=== PATIENT | male | born 1960 | race Hispanic/Latino ===

== ENCOUNTER 2025-02-02 18:36 | Emergency (ER) | payer SELFPAY ==
[2025-02-02] VITALS (36 sets, daily range): BP systolic 84–129; BP diastolic 51–65; PULSE 75–91; RESP 11–22; TEMP 36.8; O2SAT 91–100; BMI 27.5
--- NOTE | 2025-02-02 | DI.CT.S_ITS ---
PROCEDURE: CT ANGIO CHEST INDICATIONS: Dissection TECHNIQUE: After the administration of intravenous contrast, 2 mm thick sections acquired from the pulmonary apices to the posterior costophrenic angles. 3-dimensional maximum intensity projection (MIP) coronal and sagittal reformats were then acquired through the thorax. For radiation dose reduction, the following was used: automated exposure control, adjustment of mA and/or kV according to patient size. COMPARISON: [facility], CT, CT ANGIO CHEST PE PROTOCOL, 02/02/2025, 18:53., same-day CT chest PE E 02/02/2025, CT angio abdomen pelvis 02/02/2025 FINDINGS: Image quality: Diagnostic. Aorta: Ascending thoracic aortic aneurysm measuring approximately 4.7 cm. There is redemonstration of [place] type a ascending aortic dissection originating at its origin. The dissection extends into the right common carotid artery. Please see separately dictated CT angio abdomen pelvis for description of extension of dissection into the abdominal aorta and main arterial tributes. Pulmonary arteries: Pulmonary arteries are normal in size. Lower Neck: No enlarged lymph nodes. Thyroid: No thyroid nodules which require sonographic follow up, per consensus guidelines. Axillae: No enlarged lymph nodes. Chest Wall: Unremarkable. Bones: Unremarkable. Lungs and Pleura: No pneumothorax or pleural effusions. No consolidation or suspicious nodules. Heart: Heart size is normal. Large pericardial effusion. Thoracic Vessels: No aortic aneurysm. Mediastinum and Sherron: No enlarged lymph nodes. Esophagus: No wall thickening. No hiatal hernia. Upper Abdomen: Visualized upper abdomen solid organs and bowel loops appear normal. IMPRESSION: Ascending thoracic aortic aneurysm measuring up to 4.7 cm with known [place] type a aortic dissection. Dissection flap extends into the right common internal carotid artery. Please see separately dictated same day CT chest angio abdomen pelvis for description of abdominal aortic dissection. Approved by: Caitlin Burgess M.D.,Ph.D. on 02/02/2025 at 22:24
--- NOTE | 2025-02-02 18:40 | EKG_ITS ---
[place] [id number] [place] [id number] Test Date: 2025-02-02 Pat Name: Ruddy Umanzor Department: Room: Gender: Male Rehanger: : 1960 Requested By: Order Number: [id number] Reading MD: Taco Churchill MD Measurements Intervals [place] Rate: 87 P: 19 [place]: 140 QRS: 158 QRSD: 122 T: 32 QT: 422 QTc: 507 Interpretive Statements Normal sinus rhythm Right bundle branch block Left posterior fascicular block Bifascicular block Cannot rule out Inferior infarct , age undetermined NO PRIOR TRACING Electronically Signed On 02-03-2025 8:04:15 PST by Taco Churchill MD
--- NOTE | 2025-02-02 18:44 | DI.CT.S_ITS ---
PROCEDURE: CT ANGIO ABDOMEN PELVIS INDICATIONS: epigastric pain radiating to back TECHNIQUE: After the administration of intravenous contrast, 2.5 mm thick sections acquired from the diaphragm to the symphysis. 10 mm maximum-intensity projection (MIP) reformats were then acquired. For radiation dose reduction, the following was used: automated exposure control. COMPARISON: [facility], CT, CT ANGIO CHEST PE PROTOCOL, 02/02/2025, 18:53. FINDINGS: Image Quality: Diagnostic. Thoracic aorta: Ascending aortic dissection commencing at its origin. Inferior aspect only is visualized. Ascending aortic aneurysm seen on CT PE. Descending thoracic aortic dissection. Ben type A. The smaller lumen demonstrates decreased enhancement. Abdominal aorta: Abdominal aortic dissection. Extends into the left external iliac artery in the left pelvis, (4/121). No aneurysm. Mesenteric arteries: -Celiac artery originates off of the smaller less opacified lumen. The celiac artery branches are patent. -Dissection flap extends into the SMA. Near occlusion of the proximal SMA, (4/65). More distal portions of the SMA are opacified. -JORGE is patent. JORGE originates off of the larger more opacified lumen. Renal arteries: Right and left renal arteries originate off the smaller less opacified lumen, (4/60). Kidneys enhance symmetrically. Iliac arteries: No occlusion is seen. The right external iliac artery enhances much brighter than the left, (4/133). Dissection extends into the left external iliac artery. OTHER: Lower Chest: Dependent atelectasis. No pleural effusion. Pericardial effusion with increased density. 42 Hounsfield units. No enhancement of the pericardial effusion is seen. Fluid in the esophagus. Liver: No solid mass. Gallbladder: Not distended. The trace pericholecystic fluid. Biliary ducts: No biliary dilation. Pancreas: No ductal dilation. Spleen: Size is within normal limits. Adrenal Glands: No adrenal nodules. Kidneys and Ureters: No hydronephrosis. No solid mass. No complex renal cystic lesion which requires follow up. Low-density left renal cysts. Stomach and Bowel: Normal colonic caliber, without significant wall thickening. Normal appendix. Peritoneum: No ascites. No pneumoperitoneum. Ventral Wall: Small fat containing umbilical hernia. Abdominal Nodes: No retroperitoneal or mesenteric adenopathy by size criteria. Vessels: Aorta and inferior vena cava are normal in size. PELVIS: Pelvic Organs: Prostatomegaly. Bladder: No stone. Pelvic Nodes: No enlarged lymph nodes. Miscellaneous: No inguinal hernias are seen. Bones: No aggressive osseous abnormality. IMPRESSION: 1. Aortic dissection. [place] type A. Extending from the ascending thoracic aorta to the left external iliac artery. Dissection in the chest is only partially visualized. 2. Trace pericholecystic fluid. Nonspecific. 3. Fluid in the distal esophagus. 4. Moderate pericardial effusion. Comment: Findings were discussed with Taco Alan at time of dictation. Dictated by: Richard Don M.D. on 02/02/2025 at 19:37 Approved by: Richard Don M.D. on 02/02/2025 at 19:55
--- NOTE | 2025-02-02 18:44 | ED.GENADULT ---
HPI - General Adult General Chief complaint: Chest Pain Stated complaint: Chest/Abd pain Time Seen by Provider: 02/02/25 18:36 History of Present Illness HPI narrative: 64-year-old gentleman was at the [employer] playing cards to develop lower chest epigastric pain radiating to the back and became diaphoretic given 4 baby aspirin by EMS prior to arrival here and still hurting at this time. He denies any active chest pain, cough, shortness of breath, nausea, vomiting, diarrhea, constipation, rectal bleeding. Other than what is stated 14 point review system is negative. Related Data Allergies Allergy/AdvReac Type Severity Reaction Status Date / Time No Known Drug Allergies Allergy Verified 02/02/25 18:43 Review of Systems Review of Systems ROS Unobtainable: All systems reviewed & are unremarkable except as noted in HPI and below Exam Narrative Exam Narrative: GENERAL: [64] year old patient appears stated age. Well-developed patient, in mild distress. HEAD: Atraumatic. Normocephalic. EYES: Pupils equal round and reactive. Extraocular motions intact. No scleral icterus. No injection or drainage. ENT: Nose without bleeding, purulent drainage. Throat without erythema, tonsillar hypertrophy or exudate. Airway patent. NECK: Trachea midline. Non tender CARDIOVASCULAR: Regular rate and rhythm without murmurs, gallops, or rubs. RESPIRATORY: Clear to auscultation. Breath sounds equal bilaterally. No wheezes, rales, or rhonchi. GASTROINTESTINAL: Abdomen soft, epigastric TTP EXTREMITIES: No edema or joint tenderness. BACK: Nontender without deformity or crepitance. No flank tenderness. NEURO: AOx3. SKIN: No rash or erythema of visible areas Initial Vital Signs Initial Vital Signs: Vital Signs Temperature 98.2 F 02/02/25 18:43 Pulse Rate 86 02/02/25 18:43 Respiratory Rate 16 02/02/25 18:43 Blood Pressure 90/65 02/02/25 18:43 Pulse Oximetry 96 02/02/25 18:43 Oxygen Delivery Method Room Air 02/02/25 18:43 Course Orders Ordered: ED Orders 02/02/25 18:43 EKG-12 Lead Stat 02/02/25 18:44 CT angio abdomen pelvis Stat CT angio chest PE protocol Stat Complete Blood Count AUTO DIFF Stat Comprehensive Metabolic Panel Stat Lactate (Lactic Acid) Stat Lipase Stat Magnesium Stat NT-proBNP (BNP-Adult 18+) Stat PTT Partial Thromboplastin Eliseo Stat Prothrombin Time INR Stat Troponin & CK Cardiac Panel Stat 02/02/25 19:00 EKG-12 Lead Stat POTASSIUM CHLORIDE IN WATER (Potassium Cl 10 Meq/100 Ml Natasha) 10 meq in 100 mls @ 100 mls/hr IV Q1H GOLDY Stop: 02/02/25 23:29 Last Admin: 02/02/25 19:34 Dose: 100 mls/hr Documented By: VLADIMIR Discontinued Medications Aspirin (Aspirin 81 Mg Chew Tab) 324 mg PO NOW ONE Stop: 02/02/25 18:43 Last Admin: 02/02/25 18:55 Dose: Not Given Documented By: VLADIMIR Lactated Ringer's (Lactated Ringers) 1,000 mls @ 1,000 mls/hr IV BOLUS ONE Stop: 02/02/25 19:51 Last Infusion: 02/02/25 19:47 Dose: Infused Documented By: Admin: 02/02/25 18:55 Dose: 1,000 mls/hr Documented By: VLADIMIR Morphine Sulfate (Morphine 4 Mg/Ml Inj) 4 mg IV NOW ONE Stop: 02/02/25 18:54 Last Admin: 02/02/25 18:56 Dose: 4 mg Documented By: VLADIMIR Morphine Sulfate (Morphine 4 Mg/Ml Inj) 4 mg IV NOW ONE Stop: 02/02/25 19:21 Last Admin: 02/02/25 19:23 Dose: 4 mg Documented By: VLADIMIR Ondansetron HCl (Ondansetron 4 Mg/2 Ml Inj) 4 mg IV NOW ONE Stop: 02/02/25 19:27 Last Admin: 02/02/25 19:32 Dose: 4 mg Documented By: VLADIMIR Vital Signs Vital signs: Vital Signs - 8 hr 02/02/25 18:43 02/02/25 19:24 02/02/25 19:25 Temperature 98.2 F Pulse Rate 86 80 Respiratory Rate 16 13 Blood Pressure 90/65 84/54 L Pulse Oximetry 96 98 Oxygen Delivery Method Room Air Nasal Cannula Oxygen Flow Rate 4 02/02/25 19:25 02/02/25 19:28 02/02/25 19:28 Temperature Pulse Rate 80 83 Respiratory Rate 11 L 12 Blood Pressure 112/60 Pulse Oximetry 99 100 Oxygen Delivery Method Nasal Cannula Nasal Cannula Oxygen Flow Rate 4 4 02/02/25 19:30 02/02/25 19:30 02/02/25 19:32 Temperature Pulse Rate 83 82 Respiratory Rate 20 Blood Pressure 100/59 L Pulse Oximetry 100 100 Oxygen Delivery Method Nasal Cannula Nasal Cannula Oxygen Flow Rate 4 4 02/02/25 19:32 02/02/25 19:34 02/02/25 19:35 Temperature Pulse Rate 82 81 Respiratory Rate 13 13 Blood Pressure 94/52 L Pulse Oximetry 98 96 Oxygen Delivery Method Nasal Cannula Nasal Cannula Oxygen Flow Rate 4 4 02/02/25 19:35 02/02/25 19:36 02/02/25 19:37 Temperature Pulse Rate 80 Respiratory Rate 15 Blood Pressure 99/56 L 105/61 Pulse Oximetry 99 Oxygen Delivery Method Nasal Cannula Oxygen Flow Rate 4 02/02/25 19:37 02/02/25 19:38 02/02/25 19:40 Temperature Pulse Rate 79 85 82 Respiratory Rate 15 21 17 Blood Pressure Pulse Oximetry 97 100 96 Oxygen Delivery Method Nasal Cannula Nasal Cannula Nasal Cannula Oxygen Flow Rate 4 4 4 02/02/25 19:40 02/02/25 19:43 02/02/25 19:43 Temperature Pulse Rate 80 Respiratory Rate 17 Blood Pressure 109/61 97/52 L Pulse Oximetry 92 Oxygen Delivery Method Oxygen Flow Rate 02/02/25 19:45 02/02/25 19:45 02/02/25 19:47 Temperature Pulse Rate 77 Respiratory Rate 12 Blood Pressure 96/56 L 95/53 L Pulse Oximetry 91 Oxygen Delivery Method Oxygen Flow Rate 02/02/25 19:47 02/02/25 19:50 02/02/25 19:50 Temperature Pulse Rate 79 75 Respiratory Rate 17 16 Blood Pressure 92/51 L Pulse Oximetry 62 L 98 Oxygen Delivery Method Oxygen Flow Rate Medical Decision Making Lab Data 02/02/25 18:44 02/02/25 18:44 Labs: Lab Results 02/02/25 Range/Units 18:44 WBC 10.4 (4.5-11.0) X10^3/uL RBC 5.46 (4.5-5.9) X10^6/uL Hgb 15.6 (13.5-17.5) g/dL Hct 46.8 (41-53) % MCV 85.8 (80-100) fL MCH 28.5 (26-34) PG MCHC 33.2 (30-36) % RDW 15.1 H (11.6-14.8) % Plt Count 191 (150-400) X10^3/uL Neut % (Auto) 45.9 L (50-75) % Lymph % (Auto) 38.3 (25-40) % Miller % (Auto) 9.1 (3-14) % Eos % (Auto) 5.9 H (2-4) % Baso % (Auto) 0.8 (0-2) % Neut # (Auto) 4800 (9349-0139) /uL Lymph # (Auto) 4000 (2663-5490) /uL Miller # (Auto) 900 (0-900) /uL Eos # (Auto) 600 H (0-450) /uL Baso # (Auto) 100 (0-100) /uL PT 11.9 (9.4-12.5) SECONDS INR 1.1 (0.9-1.3) APTT 30 (25.1-36.5) SECONDS Sodium 140 (137-145) mmol/L Potassium 2.6 L* (3.4-5.1) mmol/L Chloride 105 (98-107) mmol/L Carbon Dioxide 21 L (22-32) mmol/L BUN 18 (9-20) mg/dL Creatinine 1.28 H (0.66-1.25) mg/dL Estimated GFR > 60 (>60) mL/min BUN/Creatinine Ratio 14.1 (6-22) Glucose 141 H (70-99) mg/dL Lactate 6.2 H* (0.7-2.1) mmol/L Calcium 9.1 (8.4-10.2) mg/dL Magnesium 2.0 (1.6-2.3) mg/dL Total Bilirubin 0.7 (0.2-1.3) mg/dL AST 34 (17-59) IU/L ALT 29 (<50) IU/L Alkaline Phosphatase 57 (38-126) U/L Total Creatine Kinase 110 (55-170) U/L Troponin I < 0.012 (0.01-0.034) ng/mL NT-Pro-B Natriuret Pep 110 (<125) pg/mL Total Protein 8.1 (6.3-8.2) g/dL Albumin 4.5 (3.5-5.0) g/dL Globulin 3.6 (1.7-4.1) g/dL Albumin/Globulin Ratio 1.3 (1.0-2.8) Lipase 110 (23-300) U/L Imaging Data CT scan - abdomen/pelvis: Radiologist's Impression: [address] [address] [address] Scan Report Signed Patient: Ruddy Sanford MR#: [id number] : 1960 Acct:[id number] Age/Sex: 64 / M Date of Service: 02/02/25 Loc: ED Accession Number: [id number] Procedure: CT angio chest PE protocol Ordering Provider: Taco Alan D.O. PROCEDURE: CT ANGIO CHEST PE PROTOCOL INDICATIONS: chest pain radiating to back TECHNIQUE: After the administration of intravenous contrast, 2 mm thick sections acquired from the pulmonary apices to the posterior costophrenic angles. 3-dimensional maximum intensity projection (MIP) coronal and sagittal reformats were then acquired through the thorax. For radiation dose reduction, the following was used: automated exposure control, adjustment of mA and/or kV according to patient size. COMPARISON: [facility], CT, CT ANGIO ABDOMEN PELVIS, 02/02/2025, 18:53. FINDINGS: Image quality: Diagnostic. Pulmonary arteries: Pulmonary arteries are normal in size, and demonstrate no intraluminal filling defects to suggest central pulmonary embolism. Lower Neck: No enlarged lymph nodes. Thyroid: No thyroid nodules which require sonographic follow up, per consensus guidelines. Axillae: No enlarged lymph nodes. Chest Wall: Unremarkable. Bones: No suspicious osseous lesion. Lungs and Pleura: No pneumothorax or pleural effusions. No consolidation or suspicious nodules. Dependent atelectasis. Heart: Heart size is normal. Pericardial effusion. Anteriorly measures 1.8 cm, (2/78). Increased density. Thoracic Vessels: No aortic aneurysm. Ascending thoracic aortic aneurysm. Not opacified on this exam. Aortic isthmus measures 3.2 cm. Descending aorta measures 3.2 cm. Mediastinum and Sherron: No enlarged lymph nodes. Esophagus: Fluid in the esophagus. Question tiny hiatal hernia. Upper Abdomen: Visualized upper abdomen solid organs and bowel loops appear normal. Dictated separately. IMPRESSION: 1. No pulmonary embolism. 2. No significant acute airspace opacity. 3. Moderate pericardial effusion with increased density. A component of which could represent hemopericardium. 4. Ascending aortic aneurysm. Not well evaluated. Ascending/descending aortic dissection seen on CT abdomen pelvis. Comment: Findings were discussed with Taco Alan at time of dictation. Dictated by: Richard Don M.D. on 02/02/2025 at 19:26 Approved by: Richard Don M.D. on 02/02/2025 at 19:36 CT scan - chest: Radiologist's Impression: [address] [address] [address] Scan Report Signed Patient: Ruddy Sanford MR#: [id number] : 1960 Acct:[id number] Age/Sex: 64 / M Date of Service: 02/02/25 Loc: ED Accession Number: [id number] Procedure: CT angio chest PE protocol Ordering Provider: Taco Alan D.O. PROCEDURE: CT ANGIO CHEST PE PROTOCOL INDICATIONS: chest pain radiating to back TECHNIQUE: After the administration of intravenous contrast, 2 mm thick sections acquired from the pulmonary apices to the posterior costophrenic angles. 3-dimensional maximum intensity projection (MIP) coronal and sagittal reformats were then acquired through the thorax. For radiation dose reduction, the following was used: automated exposure control, adjustment of mA and/or kV according to patient size. COMPARISON: [facility], CT, CT ANGIO ABDOMEN PELVIS, 02/02/2025, 18:53. FINDINGS: Image quality: Diagnostic. Pulmonary arteries: Pulmonary arteries are normal in size, and demonstrate no intraluminal filling defects to suggest central pulmonary embolism. Lower Neck: No enlarged lymph nodes. Thyroid: No thyroid nodules which require sonographic follow up, per consensus guidelines. Axillae: No enlarged lymph nodes. Chest Wall: Unremarkable. Bones: No suspicious osseous lesion. Lungs and Pleura: No pneumothorax or pleural effusions. No consolidation or suspicious nodules. Dependent atelectasis. Heart: Heart size is normal. Pericardial effusion. Anteriorly measures 1.8 cm, (2/78). Increased density. Thoracic Vessels: No aortic aneurysm. Ascending thoracic aortic aneurysm. Not opacified on this exam. Aortic isthmus measures 3.2 cm. Descending aorta measures 3.2 cm. Mediastinum and Sherron: No enlarged lymph nodes. Esophagus: Fluid in the esophagus. Question tiny hiatal hernia. Upper Abdomen: Visualized upper abdomen solid organs and bowel loops appear normal. Dictated separately. IMPRESSION: 1. No pulmonary embolism. 2. No significant acute airspace opacity. 3. Moderate pericardial effusion with increased density. A component of which could represent hemopericardium. 4. Ascending aortic aneurysm. Not well evaluated. Ascending/descending aortic dissection seen on CT abdomen pelvis. Comment: Findings were discussed with Taco Alan at time of dictation. Dictated by: Richard Don M.D. on 02/02/2025 at 19:26 Approved by: Richard Don M.D. on 02/02/2025 at 19:36 ECG Data Interpretation: NSR RBBB HR 76 DE 144 QRS [address]-t wave change No previous EKG to compare MDM Narrative Medical decision making narrative: All lab work, vital signs, nurse triage note, medication list, previous ER visits, and all imaging studies reviewed. WBC 10.4 Hg 15.6 Plt 191 Inr 1.1 sodium 140 potassium 2.6 chloride 105 CO2 21 BUN 18 creatinine 1.28 glucose 141 lactic acid 6.2 mag 2.0 LFTs normal troponin less than 0.012 [address]NP [address] scan showed no pulmonary embolus. no significant acute airspace opacity. moderate pericardial effusion with increased density a component of which could be represent hemopericardium. ascending aortic aneurysm not well evaluated. Ascending descending aortic dissection seen on CT abdomen and pelvis. Aortic dissection [place] type A extending from the ascending thoracic aorta to the left external iliac artery. dissection in t.he c hest is only partially visualized trace p.zach olecystic fluid nonspecific. fluid in the distal esophagus moderate pericardial effusion. case discussed with Dr. Mcdonnell vascular who recommended Cardiothoracic surgeon for which I spoke to Dr. Redmond has accepted the patient and to [facility] to ER directly. Discharge Plan Departure Patient Disposition: [facility] Clinical Impression: Aortic dissection
[2025-02-02 18:50] LABS: Add Manual Diff / Slide Review NO; Hematocrit 46.8 % (41-53); Hemoglobin 15.6 g/dL (13.5-17.5); Lymphocytes Absolute Auto 4000 /uL (1100-4500); Mean Corpuscular HGB Conc 33.2 % (30-36); Mean Corpuscular Hemoglobin 28.5 PG (26-34); Mean Corpuscular Volume 85.8 fL (80-100); Platelet Count 191 X10^3/uL (150-400)
[2025-02-02] MEDS: LACTATED RINGERS 1,000 ML 1000 ML IV (18:55)
[2025-02-02] MEDS: MORPHINE 4 MG/ML INJ IV ×2 (18:56→19:23)
[2025-02-02 18:58] LABS: INR 1.1 (0.9-1.3); Prothrombin Time 11.9 SECONDS (9.4-12.5)
[2025-02-02 19:00] LABS: Alanine Aminotransferase 29 IU/L (<50); Albumin 4.5 g/dL (3.5-5.0); Albumin Globulin Ratio 1.3 (1.0-2.8); Alkaline Phosphatase 57 U/L (38-126); Blood Urea Nitrogen 18 mg/dL (9-20); Calcium 9.1 mg/dL (8.4-10.2); Carbon Dioxide 21 mmol/L (22-32); Chloride 105 mmol/L (98-107); Creatine Kinase 110 U/L (55-170); Estimated Glomerular Filt Rate > 60 mL/min (>60); Globulin 3.6 g/dL (1.7-4.1); Glucose 141 mg/dL (70-99); HEMOLYSIS 22 (0-50); Lipase 110 U/L (23-300); Magnesium 2.0 mg/dL (1.6-2.3); Sodium 140 mmol/L (137-145); Total Protein 8.1 g/dL (6.3-8.2)
--- NOTE | 2025-02-02 19:00 | EKG_ITS ---
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
[2025-02-02 19:01] LABS: PTT Partial Thromboplastin Tim 30 SECONDS (25.1-36.5)
[2025-02-02 19:12] LABS: NT-proBNP (BNP-Adult 18+) 110 pg/mL (<125); Troponin I < 0.012 ng/mL (0.01-0.034)
[2025-02-02 19:14] LABS: Potassium 2.6 mmol/L (3.4-5.1)
[2025-02-02 19:15] LABS: Lactate (Lactic Acid) 6.2 mmol/L (0.7-2.1)
[2025-02-02] MEDS: ONDANSETRON 4 MG/2 ML INJ IV (19:32)
[2025-02-02] MEDS: POTASSIUM CHLORIDE IN WATER 10 MEQ/100 ML PIGGYBACK 100 MEQ IV ×2 (19:34→20:54)
[2025-02-02 20:37] LABS: Reflexed Lactate in 2 Hours Y
--- NOTE | 2025-02-02 21:11 | PC.NURSE ---
This nurse never left pt side upon arrival of EMS, provider made immediately aware of pt condition upon arrival, gave [place] second bag potassium (scanned in MAr as given) pt family updated of pt status
== END 2025-02-02 21:00 | disposition short-term general hospital (02) ==
PROVIDERS: Emergency Provider Family Medicine
DX: I71.010 Dissection of ascending aorta (principal); R10.13 Epigastric pain
CPT/HCPCS: 71275; 74174; 80053; 82550; 83605; 83690; 83735; 83880; 84484; 85025; 85610; 85730; 93005; 96361; 96365; 96375; 99285; J2272; J2405; Q9967